=== PATIENT | male | born 1975 | race Caucasian/White ===

== ENCOUNTER 2017-01-01 17:32 | Emergency (ER) | payer BC ==
[~2017-01-01] VITALS: Ht 172.7 cm; Wt 139.8 kg
[~2017-01-01 17:32] MED LIST: ANT25 PO; ASPI81TA28 PO; HYDR12.56 PO; METO50TA16 PO
[2017-01-01 17:41] VITALS: TEMP 36.4; Ht 172.7 cm; Wt 139.8 kg
[2017-01-01] MEDS ORDERED: LISI-461 PO (18:05)
[2017-01-01 18:32] LABS: BASO % 0.2 %; BASO ABS # 0.02 K/uL (0-0.2); COMPLETE YES; EOS % 1.2 %; HEMATOCRIT 44.4 % (42-52); IG% 0.3 %; LYMPH % 22.5 %; MEAN CELL VOLUME 87.2 fL (80-100); MEAN CORPUSCULAR HEMOGLOBIN 29.7 pg (25-34); MEAN PLATELET VOLUME 11.8 fL (7.4-10.4); MONO % 7.8 %; PLATELET COUNT 164 K/uL (130-400); RED BLOOD COUNT 5.09 M/uL (4.7-6.1); WHITE BLOOD COUNT 9.77 K/uL (4.8-10.8)
[2017-01-01 18:53] LABS: ALT/SGPT 40 U/L (12-78); BLOOD UREA NITROGEN 13 mg/dl (7-18); BUN/CREATININE RATIO 12.9 (10-20); CARBON DIOXIDE 28 mmol/L (21-32); CHLORIDE 102 mmol/L (98-107); CREATININE 0.98 mg/dl (0.60-1.40); GLUCOSE 104 mg/dl (70-99); SODIUM 136 mmol/L (136-145)
[2017-01-01 19:10] LABS: ALKALINE PHOSPHATASE 54 U/L (45-117)
[2017-01-01 19:15] LABS: URINE APPEARANCE CLEAR (CLEAR); URINE BILIRUBIN NEG (NEG); URINE COLOR YELLOW; URINE EPITHELIAL CELL AUTO 0-5 /lpf (0-5); URINE NITRITE NEG (NEG); URINE SPECIFIC GRAVITY 1.013 (1.000-1.030); UROBILINOGEN NEG (NEG); ZZUR CULT IF INDIC CLEAN CATCH NO
[2017-01-01 19:17] LABS: MANUAL MICROSCOPIC REQUIRED? NO; REVIEW REQ? NO
[2017-01-01 20:00] LABS: POTASSIUM 3.7 mmol/L (3.5-5.1)
[2017-01-01 20:09] VITALS: BP 137/88; PULSE 58; O2SAT 98
[2017-01-01 20:42] LABS: LYME DISEASE AB IGG NEG (NEG); LYME DISEASE AB IGM NEG (NEG)
--- NOTE | 2017-01-01 22:00 | EMERGENCY ROOM VISIT NOTE ---
History Report prepared by Barbi: Waqas Treviño Under the Supervision of: Dr. Jean High D.O. First contact with patient: 17:47 Chief Complaint: HYPERTENSION Stated Complaint: MED CHANGE, PT DOESN'T FEEL RIGHT, BP ISSUES History of Present Illness The patient is a 41 year old male who presents to the Emergency Room with complaints of on and off bilateral arm and leg weakness starting earlier today. The patient notes that his arms "feel like Jell-o". He additionally reports that occasionally his extremities will go numb. The patient notes that he currently takes metoprolol for A-fib, hydrochlorothiazide, and lisinopril. The patient denies any recent fevers, joint swelling, or recent illnesses. He additionally states that he has not been doing anything different than usual recently. He states that he does work outside, though he does not think that he had any tick bites. Source of History: patient Onset: earlier today Position: arm (bilateral), leg (bilateral) Quality: other (weakness) Timing: other (on and off) Associated Symptoms: + numbness, No fevers Review of Systems See HPI for pertinent positives & negatives. A total of 10 systems reviewed and were otherwise negative. Past Medical & Surgical Medical Problems: (1) Anxiety State Nos (2) Atrial Fibrillation (3) Hypertension Nos (4) Lumbago (5) No significant past surgical history (6) Obesity, Nos (7) Tobacco Use Disorder Family History FH: cancer FH: diabetes mellitus FH: heart disease FH: hypertension FH: lung disease FH: seizures Social History Smoking Status: Never Smoker Alcohol Use: occasionally Marital Status: Occupation Status: employed Current/Historical Medications Scheduled Hydrochlorothiazide (Hctz), 12.5 MG PO DAILY Lisinopril (Lisinopril), 10 MG PO HS Metoprolol Tartrate (Lopressor) (Lopressor), 50 MG PO BID Scheduled PRN Aspirin (Aspirin Ec), 81 MG PO DAILY PRN for Meclizine HCl (Meclizine HCl), 1-2 TAB PO Q6 PRN for Dizziness or Vertigo Allergies Coded Allergies: No Known Allergies (Unverified , NONE, 01/01/17) Physical Exam Vital Signs Date Time Temp Pulse Resp B/P (MAP) Pulse Ox O2 Delivery O2 Flow Rate FiO2 01/01/17 20:09 58 20 137/88 98 01/01/17 18:14 62 01/01/17 18:11 68 143/94 01/01/17 17:41 36.4 67 20 152/94 96 Room Air Physical Exam CONSTITUTIONAL/VITAL SIGNS: Reviewed / noted above. GENERAL: Non-toxic in appearance. INTEGUMENTARY: Warm, dry, and [place]. HEAD: Normocephalic. EYES: without scleral icterus or trauma. ENT/OROPHARYNX: clear and moist. LYMPHADENOPATHY/NECK: Is supple without lymphadenopathy or meningismus. RESPIRATORY: Lungs clear and equal. CARDIOVASCULAR: Regular rate and rhythm. GI/ABDOMEN: Soft and nontender. No organomegaly or pulsatile mass. No rebound or guarding. Normal bowel sounds. EXTREMITIES: Warm and well perfused. BACK: No CVA tenderness. NEUROLOGICAL: Intact without focal deficits. PSYCHIATRIC: normal affect. MUSCULOSKELETAL: Normally developed with good muscle tone. Medical Decision & Procedures Laboratory Results 01/01/17 18:07 Red Blood Count 5.09, Mean Corpuscular Volume 87.2, Mean Corpuscular Hemoglobin 29.7, Mean Corpuscular Hemoglobin Concent 34.0, Mean Platelet Volume 11.8, Neutrophils (%) (Auto) 68.0, Lymphocytes (%) (Auto) 22.5, Monocytes (%) (Auto) 7.8, Eosinophils (%) (Auto) 1.2, Basophils (%) (Auto) 0.2, Neutrophils # (Auto) 6.64, Lymphocytes # (Auto) 2.20, Monocytes # (Auto) 0.76, Eosinophils # (Auto) 0.12, Basophils # (Auto) 0.02 01/01/17 18:07 01/01/17 19:37 Test 01/01/17 18:07 01/01/17 18:50 01/01/17 19:37 White Blood Count 9.77 K/uL (4.8-10.8) Red Blood Count 5.09 M/uL (4.7-6.1) Hemoglobin 15.1 g/dL (14.0-18.0) Hematocrit 44.4 % (42-52) Mean Corpuscular Volume 87.2 fL (80-100) Mean Corpuscular Hemoglobin 29.7 pg (25-34) Mean Corpuscular Hemoglobin Concent 34.0 g/dl (32-36) Platelet Count 164 K/uL (130-400) Mean Platelet Volume 11.8 fL (7.4-10.4) Neutrophils (%) (Auto) 68.0 % Lymphocytes (%) (Auto) 22.5 % Monocytes (%) (Auto) 7.8 % Eosinophils (%) (Auto) 1.2 % Basophils (%) (Auto) 0.2 % Neutrophils # (Auto) 6.64 K/uL (1.4-6.5) Lymphocytes # (Auto) 2.20 K/uL (1.2-3.4) Monocytes # (Auto) 0.76 K/uL (0.11-0.59) Eosinophils # (Auto) 0.12 K/uL (0-0.5) Basophils # (Auto) 0.02 K/uL (0-0.2) RDW Standard Deviation 41.5 fL (36.4-46.3) RDW Coefficient of Variation 13.0 % (11.5-14.5) Immature Granulocyte % (Auto) 0.3 % Immature Granulocyte # (Auto) 0.03 K/uL (0.00-0.02) Anion Gap 6.0 mmol/L (3-11) Est Creatinine Clear Calc Drug Dose 134.7 ml/min Estimated GFR () 109.8 Estimated GFR (Non- 94.7 BUN/Creatinine Ratio 12.9 (10-20) Calcium Level 9.0 mg/dl (8.5-10.1) Total Bilirubin 0.5 mg/dl (0.2-1) Alanine Aminotransferase (ALT/SGPT) 40 U/L (12-78) Alkaline Phosphatase 54 U/L (45-117) Creatine Kinase MB 1.3 ng/ml (0.5-3.6) Creatine Kinase MB Ratio (0-3.0) Troponin I < 0.015 ng/ml (0-0.045) Total Protein 7.6 gm/dl (6.4-8.2) Albumin 3.7 gm/dl (3.4-5.0) Thyroid Stimulating Hormone (TSH) 2.000 uIu/ml (0.300-4.500) Urine Color YELLOW Urine Appearance CLEAR (CLEAR) Urine pH 6.0 (4.5-7.5) Urine Specific [place] 1.013 (1.000-1.030) Urine Protein NEG (NEG) Urine Glucose (UA) NEG (NEG) Urine Ketones NEG (NEG) Urine Occult Blood NEG (NEG) Urine Nitrite NEG (NEG) Urine Bilirubin NEG (NEG) Urine Urobilinogen NEG (NEG) Urine Leukocyte Esterase NEG (NEG) Urine WBC (Auto) 1-5 /hpf (0-5) Urine RBC (Auto) 0-4 /hpf (0-4) Urine Hyaline Casts (Auto) 0 /lpf (0-5) Urine Epithelial Cells (Auto) 0-5 /lpf (0-5) Urine Bacteria (Auto) NEG (NEG) Magnesium Level 2.0 mg/dl (1.8-2.4) Direct Bilirubin 0.1 mg/dl (0-0.2) Aspartate Amino Transf (AST/SGOT) 18 U/L (15-37) Total Creatine Kinase 167 U/L (39-308) Lyme Disease IgG Antibody NEG (NEG) Lyme Disease IgM Antibody NEG (NEG) Laboratory results as stated above per my review. ECG Indication: weakness Rate (beats per minute): 62 Rhythm: normal sinus Findings: no ectopy, other (No acute injury) ED Course 1746: Previous medical records were reviewed. The patient was evaluated in room C11. A complete history and physical examination was performed. 1956: On reevaluation, the patient is stable. I discussed the results and findings with the patient. He verbalized agreement of the treatment plan. He was discharged home. Medical Decision Differentials include: Acute coronary syndrome, myocardial infarction, CVA, TIA , anemia, infection, pneumonia, UTI, pyelonephritis, poor nutrition, dehydration , electrolyte disturbance, and hypoglycemia. This is a 41-year-old male who presents to the ED with a chief complaint that his arms and legs feel like Jell-O. The patient states that he has had similar symptoms off and on at times. Most of the day, he states that he was okay. His symptoms started this evening. The patient denies any other specific symptoms. Denies focal weakness, difficulty with speech, headaches, chest pains , shortness of breath, abdominal pains or trauma. Denies any unusual activities. He does report a headache history of hypertension for which he takes lisinopril and hydrochlorothiazide. He also is on metoprolol for a history of A. fib. His physical exam was unremarkable. Neurological exam was normal. He has strong distal pulses and normal perfusion in all extremities. There is no unusual rashes. His blood pressure was slightly elevated. CBC is normal, platelet metabolic panel was normal, troponin is negative, TSH is normal , urinalysis was normal, Lyme test was negative. The patient was told the results of the test. He is felt to be stable for discharge and outpatient follow-up. He does have an appointment with his PCP on Friday. Medication Reconcilliation Current Medication List: was personally reviewed by me Blood Pressure Screening Patient's blood pressure: Elevated blood pressure Blood pressure disposition: Referred to PCP Impression Primary Impression: Weakness Scribe Attestation The scribe's documentation has been prepared under my direction and personally reviewed by me in its entirety. I confirm that the note above accurately reflects all work, treatment, procedures, and medical decision making performed by me. Departure Information Dispostion Home / Self-Care Referrals No Doctor, Assigned (PCP) Forms HOME CARE DOCUMENTATION FORM, IMPORTANT VISIT INFORMATION, WORK / SCHOOL INSTRUCTIONS Patient Instructions My [facility] Additional Instructions Follow-up with your doctor for further care and evaluation in 1 week if symptoms persist. Return to the emergency department for worsening or new symptoms or any concerns. You have been examined and treated today on an emergency basis only. This is not a substitute for, or an effort to provide, complete comprehensive medical care. It is impossible to recognize and treat all injuries or illnesses in a single emergency department visit. It is therefore important that you follow up closely with your doctor. Call as soon as possible for an appointment.
== END 2017-01-01 20:10 | disposition home or self-care (01) ==
LOC: C.EDB 17:33 → C.EDC 20:10
DX: R53.1 Weakness (principal); I48.91 Unspecified atrial fibrillation; I10 Essential (primary) hypertension; M54.5 Low back pain; E66.9 Obesity, unspecified; Z80.9 Family history of malignant neoplasm, unspecified; Z83.3 Family history of diabetes mellitus; Z82.49 Family history of ischemic heart disease and other diseases of the circulatory system; Z83.6 Family history of other diseases of the respiratory system; Z79.899 Other long term (current) drug therapy